=== PATIENT | female | born 1970 | race African-American/Black ===

== ENCOUNTER 2016-11-25 07:52 | Emergency (ER) | payer SELFPAY ==
[~2016-11-25] VITALS: Ht 162.6 cm; Wt 91.8 kg
[2016-11-25 07:56] VITALS: BP 120/77
[2016-11-25] MEDS ORDERED: MOTRIN800 MG PO (08:24)
== END 2016-11-25 08:32 | disposition home or self-care (01) ==
LOC: EME 07:52
DX: N64.4 Mastodynia (principal)
CPT/HCPCS: 99281; 99283

== ENCOUNTER 2017-01-15 05:54 | Emergency (ER) | payer OTHER ==
[~2017-01-15] VITALS: Ht 167.6 cm; Wt 90.9 kg
[~2017-01-15 05:54] MED LIST: MOTRIN800 MG PO
[2017-01-15] MEDS ORDERED: TYLENOL WITH C1 EACH PO (10:09)
[2017-01-15 10:26] VITALS: BP 110/72
== END 2017-01-15 10:26 | disposition home or self-care (01) ==
LOC: EME 05:54
DX: S30.0XXA Contusion of lower back and pelvis, initial encounter (principal); S10.93XA Contusion of unspecified part of neck, initial encounter; R07.89 Other chest pain; V44.6XXA Car passenger injured in collision with heavy transport vehicle or bus in traffic accident, initial encounter; Y92.410 Unspecified street and highway as the place of occurrence of the external cause
CPT/HCPCS: 71010; 72040; 72100; 72125; 99281; 99283

== ENCOUNTER 2017-02-02 19:06 | Emergency (ER) | payer OTHER ==
[~2017-02-02] VITALS: Ht 162.6 cm; Wt 93.3 kg
[~2017-02-02 19:06] MED LIST changes: +TYLENOL WITH C1 EACH PO
[2017-02-02] MEDS ORDERED: COLCHICINE0.6 M1 PO (20:37)
[2017-02-02] MEDS ORDERED: INDOCIN50 MG PO (20:37)
[2017-02-02] MEDS ORDERED: PERCOCET 5/31 TABLET PO (20:37)
[2017-02-02 21:23] VITALS: BP 136/85
== END 2017-02-02 21:27 | disposition home or self-care (01) ==
LOC: EXP 19:06 → EME 19:06 → EXP 21:27
DX: M10.072 Idiopathic gout, left ankle and foot (principal)
CPT/HCPCS: 73630; 99281; 99284